=== PATIENT | female | born 1955 | race Caucasian/White ===

== ENCOUNTER → 2018-03-21 | Outpatient (CLI) | payer BC ==
--- NOTE | 2018-03-24 11:01 | MM ---
Reason for exam: screening (asymptomatic). Last mammogram was performed 2 years and 3 months ago. History: Patient is postmenopausal and had first child at age 33. Family history of premenopausal breast cancer in mother at age 50 and breast cancer in grandmother at age 72. Excisional biopsy of the right breast, 2003. Excisional biopsy of the right breast, 2002. Took hormonal contraceptives for 7 years. Physical Findings: A clinical breast exam by your physician is recommended on an annual basis and results should be correlated with mammographic findings. MG Screening Mammo w CAD Bilateral CC and MLO view(s) were taken. Prior study comparison: December 21, 2015, bilateral MG 3d screening mammo w/cad. November 19, 2014, bilateral MG diagnostic mammo w CAD UZAIR. There are scattered fibroglandular densities. Finding: There are typically benign dystrophic, grouped/clustered calcifications in the inner quadrant, posterior position of the left breast. There is a chronic nodularity in the posterior right breast. There is no discrete abnormality. ASSESSMENT: Benign, BI-RAD 2 RECOMMENDATION: Routine screening mammogram of both breasts in 1 year.
== END | disposition home or self-care (01) ==
LOC: RADMAMWWP 09:24
PROVIDERS: ATTEND Family Medicine
DX: Z12.31 Encounter for screening mammogram for malignant neoplasm of breast (principal)
CPT/HCPCS: 77067

== ENCOUNTER 2019-03-09 22:23 | Emergency (ER) | payer BC ==
[2019-03-09] MEDS ORDERED: SODIUM CHLORIDE 0.9% 500 ML 500 ML IV STA (22:53)
[2019-03-09 23:12] LABS: Basophils % (A) 0 %; Eosinophils # (A) 0.2 k/uL (0-0.7); Eosinophils % (A) 3 %; HCT 43.1 % (34.0-46.0); Lymphocytes % (A) 24 %; MCH 28.9 pg (25.0-35.0); MCHC 32.4 g/dL (31.0-37.0); MCV 89.1 fL (80.0-100.0); Mean Platelet Volume 6.9; Monocytes # (A) 0.4 k/uL (0-1.0); Monocytes % (A) 4 %; Neutrophils # (A) 5.5 k/uL (1.3-7.7); Neutrophils % (A) 67 %; Platelet Count 277 k/uL (150-450); RBC 4.84 m/uL (3.80-5.40); RDW 14.6 % (11.5-15.5); WBC 8.2 k/uL (3.8-10.6)
[2019-03-09] MEDS ORDERED: MAG HYDROX/AL HYDROX/SIMETH 30 ML, HYOSCYAMINE ELIXIR 10 ML, CIMETIDINE HCL 300 MG, LID... PO STA ×4 (23:12)
--- NOTE | 2019-03-09 23:15 | ED ---
General Adult HPI - General Chief complaint: Abdominal Pain Stated complaint: Upper Abd Pain Lower Chest Pain Time Seen by Provider: 03/09/19 22:53 Source: patient Mode of arrival: wheelchair Limitations: no limitations - History of Present Illness Initial comments: Dictation was produced using [employer] dictation software. please excuse any grammatical, word or spelling errors. Chief Complaint: 63-year-old female past medical history of hypertension, obesity presents with epigastric abdominal pain. History of Present Illness: His 63-year-old female presents with epigastric abdominal pain. She reports that the pain as sharp and radiates to both flanks. Patient recently started a new diet. She states she's on a 1-3 for diet. She states today she is on her loading phase. She reports that she had a lot of fatty substances. She reports that she had dinner when she was sitting on the ground reading her Bible when she began having this epigastric pain she initially thought it was gas. Took some gas pills. She tried also taking some Naprosyn with no resolve of her symptoms. Patient reports that she has had sore symptoms like this in the past however not typically this severe. Patient did report some nausea however no vomiting. Patient denies any chest pain or radiation of symptoms to her shoulders or arms. The ROS documented in this emergency department record has been reviewed and confirmed by me. Those systems with pertinent positive or negative responses have been documented in the HPI. All other systems are other negative and/or noncontributory. PHYSICAL EXAM: General Impression: Alert and oriented x3, not in acute distress HEENT: Normocephalic atraumatic, extra-ocular movements intact, pupils equal and reactive to light bilaterally, mucous membranes moist. Cardiovascular: Heart regular rate and rhythm, S1&S2 audible, no murmurs, rubs or gallops Chest: Lungs clear to auscultation bilaterally, no rhonchi, no wheeze, no rales Abdomen: Bowel sounds present, abdomen soft, non-tender to palpation, non- distended, no organomegaly, negative Dubois sign Musculoskeletal: Pulses present and equal in all extremities, no peripheral edema Motor: no focal deficits noted Neurological: CN II-XII grossly intact, no focal motor or sensory deficits noted Skin: Intact with no visualized rashes Psych: Normal affect and mood ED course: 63-year-old female presents chief complaint of epigastric abdominal pain. Vital signs upon arrival are within acceptable limits. Laboratory evaluation obtained. CBC, metabolic panel is unremarkable. Cardiac enzymes negative. Urinalysis shows 34 white blood cells. Patient denies any urinary symptoms at this time. Pending urine culture. KUB x-ray shows moderate amount of stool in the colon and rectum. Otherwise no acute processes at this time. She given GI cocktail no improvement of symptoms. Patient's abdomen was pressed again in vision still having mild persistent symptoms. Clinical presentation is consistent with burden pain. No clinical suspicion of surgical abdomen. Patient otherwise appears well 1 at rest. Abdomen is soft and no nrigid. Patient given IV analgesia. She is given prescription for Bentyl. Patient told that she should expect to pass large amounts of stool in the next 24 hours. Otherwise her symptoms are self limiting. Patient told to follow-up with PCP upon discharge. Return parameters discussed. Clinical presentation is not consistent with gallbladder pain given that patient not having any right upper quadrant symptoms and negative Dubois sign and also negative labs. EKG interpretation: Ventricular rate 84, normal sinus rhythm, AL interval 140, care 72, QTc 441. No AL prolongation, no QTC prolongation, no ST or T-wave changes noted. Overall, this EKG is unremarkable - Related Data Home Medications Medication Instructions Recorded Confirmed Aspirin 325 mg PO PC-SUPPER 03/09/19 03/09/19 Evening [place] Oil 500 mg PO PC-SUPPER 03/09/19 03/09/19 Hydrochlorothiazide 50 mg PO DAILY 03/09/19 03/09/19 Levothyroxine Sodium [Synthroid] 75 mcg PO DAILY 03/09/19 03/09/19 Losartan [Cozaar] 50 mg PO DAILY 03/09/19 03/09/19 Potassium 396 mg PO PC-SUPPER 03/09/19 03/09/19 Previous Rx's Medication Instructions Recorded Dicyclomine [Bentyl] 20 mg PO QID PRN #14 tablet 03/10/19 Allergies Allergy/AdvReac Type Severity Reaction Status Date / Time Sulfa (Sulfonamide Allergy Rash/Hives Verified 03/09/19 23:16 Antibiotics) codeine AdvReac Nausea & Verified 03/09/19 23:16 Vomiting Review of Systems ROS Statement: Those systems with pertinent positive or pertinent negative responses have been documented in the HPI. ROS Other: All systems not noted in ROS Statement are negative. Past Medical History Past Medical History: Hypertension History of Any Multi-Drug Resistant Organisms: None Reported Past Surgical History: Orthopedic Surgery Additional Past Surgical History / Comment(s): lt knee, breast lumps Past Psychological History: No Psychological Hx Reported Smoking Status: Never smoker Past Alcohol Use History: None Reported Past Drug Use History: Unable to Obtain General Exam Limitations: no limitations Course Vital Signs 03/09/19 22:40 Temperature 98.2 F Pulse Rate 88 Respiratory 20 Rate Blood Pressure 167/95 O2 Sat by Pulse 98 Oximetry Medical Decision Making - Lab Data Result diagrams: 03/09/19 23:00 03/09/19 23:00 Lab Results 03/09/19 03/09/19 03/09/19 Range/Units 23:00 23:00 23:00 WBC 8.2 (3.8-10.6) k/uL RBC 4.84 (3.80-5.40) m/uL Hgb 14.0 (11.4-16.0) gm/dL Hct 43.1 (34.0-46.0) % MCV 89.1 (80.0-100.0) fL MCH 28.9 (25.0-35.0) pg MCHC 32.4 (31.0-37.0) g/dL RDW 14.6 (11.5-15.5) % Plt Count 277 (150-450) k/uL Neutrophils % 67 % Lymphocytes % 24 % Monocytes % 4 % Eosinophils % 3 % Basophils % 0 % Neutrophils # 5.5 (1.3-7.7) k/uL Lymphocytes # 2.0 (1.0-4.8) k/uL Monocytes # 0.4 (0-1.0) k/uL Eosinophils # 0.2 (0-0.7) k/uL Basophils # 0.0 (0-0.2) k/uL Sodium 140 (137-145) mmol/L Potassium 3.9 (3.5-5.1) mmol/L Chloride 100 (98-107) mmol/L Carbon Dioxide 29 (22-30) mmol/L Anion Gap 11 mmol/L BUN 26 H (7-17) mg/dL Creatinine 0.64 (0.52-1.04) mg/dL Est GFR (CKD-EPI)AfAm >90 (>60 ml/min/1.73 sqM) Est GFR (CKD-EPI)NonAf >90 (>60 ml/min/1.73 sqM) Glucose 139 H (74-99) mg/dL Calcium 9.8 (8.4-10.2) mg/dL Total Bilirubin 0.3 (0.2-1.3) mg/dL AST 25 (14-36) U/L ALT 31 (9-52) U/L Alkaline Phosphatase 111 (38-126) U/L Troponin I <0.012 (0.000-0.034) ng/mL Total Protein 7.1 (6.3-8.2) g/dL Albumin 4.3 (3.5-5.0) g/dL Lipase 160 (23-300) U/L Urine Color Urine Appearance (Clear) Urine pH (5.0-8.0) Ur Specific [place] (1.001-1.035) Urine Protein (Negative) Urine Glucose (UA) (Negative) Urine Ketones (Negative) Urine Blood (Negative) Urine Nitrite (Negative) Urine Bilirubin (Negative) Urine Urobilinogen (<2.0) mg/dL Ur Leukocyte Esterase (Negative) Urine RBC (0-5) /hpf Urine WBC (0-5) /hpf Ur Squamous Epith Cells (0-4) /hpf Hyaline Casts (0-2) /lpf Urine Mucus (None) /hpf 03/09/19 Range/Units 23:00 WBC (3.8-10.6) k/uL RBC (3.80-5.40) m/uL Hgb (11.4-16.0) gm/dL Hct (34.0-46.0) % MCV (80.0-100.0) fL MCH (25.0-35.0) pg MCHC (31.0-37.0) g/dL RDW (11.5-15.5) % Plt Count (150-450) k/uL Neutrophils % % Lymphocytes % % Monocytes % % Eosinophils % % Basophils % % Neutrophils # (1.3-7.7) k/uL Lymphocytes # (1.0-4.8) k/uL Monocytes # (0-1.0) k/uL Eosinophils # (0-0.7) k/uL Basophils # (0-0.2) k/uL Sodium (137-145) mmol/L Potassium (3.5-5.1) mmol/L Chloride (98-107) mmol/L Carbon Dioxide (22-30) mmol/L Anion Gap mmol/L BUN (7-17) mg/dL Creatinine (0.52-1.04) mg/dL Est GFR (CKD-EPI)AfAm (>60 ml/min/1.73 sqM) Est GFR (CKD-EPI)NonAf (>60 ml/min/1.73 sqM) Glucose (74-99) mg/dL Calcium (8.4-10.2) mg/dL Total Bilirubin (0.2-1.3) mg/dL AST (14-36) U/L ALT (9-52) U/L Alkaline Phosphatase (38-126) U/L Troponin I (0.000-0.034) ng/mL Total Protein (6.3-8.2) g/dL Albumin (3.5-5.0) g/dL Lipase (23-300) U/L Urine Color Yellow Urine Appearance Clear (Clear) Urine pH 6.0 (5.0-8.0) Ur Specific [place] 1.044 H (1.001-1.035) Urine Protein 1+ H (Negative) Urine Glucose (UA) Negative (Negative) Urine Ketones Trace H (Negative) Urine Blood Negative (Negative) Urine Nitrite Negative (Negative) Urine Bilirubin Negative (Negative) Urine Urobilinogen 3.0 (<2.0) mg/dL Ur Leukocyte Esterase Small H (Negative) Urine RBC 13 H (0-5) /hpf Urine WBC 24 H (0-5) /hpf Ur Squamous Epith Cells 3 (0-4) /hpf Hyaline Casts 1 (0-2) /lpf Urine Mucus Many H (None) /hpf Disposition Clinical Impression: Abdominal pain Disposition: HOME SELF-CARE Condition: Good Instructions (If sedation given, give patient instructions): Abdominal Pain (ED) Prescriptions: Dicyclomine [Bentyl] 20 mg PO QID PRN #14 tablet PRN Reason: abdominal pain Is patient prescribed a controlled substance at d/c from ED?: No Referrals: Trina Austin DO [Primary Care Provider] - 1-2 days Time of Disposition: 00:14
[2019-03-09 23:16] LABS: Appearance,Urine Clear (Clear); Bilirubin,Urine Negative (Negative); Blood,Urine Negative (Negative); Color,Urine Yellow; Glucose,Urine (UA) Negative (Negative); Hyaline Casts,Urine 1 /lpf (0-2); Ketones,Urine Trace (Negative); Leukocyte Esterase,Urine Small (Negative); Mucus,Urine Many /hpf; Nitrite,Urine Negative (Negative); Protein,Urine 1+ (Negative); RBC,Urine 13 /hpf (0-5); Specific Gravity,Urine 1.044 (1.001-1.035); Squamous Epithelial Cell,Urine 3 /hpf (0-4)
[2019-03-09 23:22] LABS: ALT 31 U/L (9-52); AST 25 U/L (14-36); Albumin 4.3 g/dL (3.5-5.0); Alkaline Phosphatase 111 U/L (38-126); Anion Gap 11 mmol/L; Blood Urea Nitrogen 26 mg/dL (7-17); Calcium 9.8 mg/dL (8.4-10.2); Carbon Dioxide 29 mmol/L (22-30); Chloride 100 mmol/L (98-107); Glucose 139 mg/dL (74-99); Lipase 160 U/L (23-300); Potassium 3.9 mmol/L (3.5-5.1); Sodium 140 mmol/L (137-145); Total Bilirubin 0.3 mg/dL (0.2-1.3); Total Protein 7.1 g/dL (6.3-8.2)
--- NOTE | 2019-03-09 23:49 | XR ---
EXAM: XR Abdomen, 2 Views CLINICAL HISTORY: Pain TECHNIQUE: Frontal view of the abdomen/pelvis with upright view of the abdomen. COMPARISON: No relevant prior studies available. FINDINGS: Intraperitoneal space: No free air. Gastrointestinal tract: Moderate amount of stool throughout the colon and rectum. No dilation. Bones/joints: Unremarkable. IMPRESSION: Moderate amount of stool throughout the colon and rectum. No bowel obstruction, pneumatosis or free air.
[2019-03-10] MEDS ORDERED: KETOROLAC 30 MG/ML 1 ML VIAL IVP STA (00:11)
[2019-03-10 00:45] VITALS: BP 144/74; PULSE 78; RESP 18; TEMP 98
== END 2019-03-10 00:45 | disposition home or self-care (01) ==
LOC: EC 22:23
DX: R10.13 Epigastric pain (principal); R07.9 Chest pain, unspecified; Z79.82 Long term (current) use of aspirin; Z79.890 Hormone replacement therapy; Z79.899 Other long term (current) drug therapy; Z88.2 Allergy status to sulfonamides; Z88.5 Allergy status to narcotic agent; I10 Essential (primary) hypertension; Z53.29 Procedure and treatment not carried out because of patient's decision for other reasons
CPT/HCPCS: 36415; 74018; 80053; 81001; 83690; 84484; 85025; 87086; 93005; 96360; 99284

== ENCOUNTER → 2019-10-15 | Outpatient (CLI) | payer BC, MEDICARE ==
--- NOTE | 2019-10-16 13:42 | MM ---
Reason for exam: screening (asymptomatic). Last mammogram was performed 1 year and 7 months ago. History: Patient is postmenopausal and had first child at age 33. Family history of premenopausal breast cancer in mother at age 50 and breast cancer in grandmother at age 72. Excisional biopsy of the right breast, 2003. Excisional biopsy of the right breast, 2002. Took hormonal contraceptives for 7 years. Physical Findings: A clinical breast exam by your physician is recommended on an annual basis and results should be correlated with mammographic findings. MG Screening Mammo w CAD Bilateral CC and MLO view(s) were taken. Prior study comparison: March 21, 2018, bilateral MG screening mammo w CAD. December 21, 2015, bilateral MG 3d screening mammo w/cad. There are scattered fibroglandular densities. Benign appearing calcifications in the left breast. There is no discrete abnormality. No significant changes when compared with prior studies. ASSESSMENT: Benign, BI-RAD 2 RECOMMENDATION: Routine screening mammogram of both breasts in 1 year.
== END | disposition home or self-care (01) ==
LOC: RADMAMWWP 08:33
PROVIDERS: ATTEND Family Medicine
DX: Z12.31 Encounter for screening mammogram for malignant neoplasm of breast (principal); Z80.3 Family history of malignant neoplasm of breast
CPT/HCPCS: 77067

== ENCOUNTER → 2020-05-11 | Outpatient (CLI) | payer BC ==
--- NOTE | 2020-05-11 09:17 | MM ---
Reason for exam: clinical finding. Last mammogram was performed 7 months ago. History: Patient is postmenopausal and had first child at age 33. Family history of premenopausal breast cancer in mother at age 50 and breast cancer in grandmother at age 72. Excisional biopsy of the right breast, 2003. Excisional biopsy of the right breast, 2002. Took hormonal contraceptives for 7 years. Physical Findings: Nurse Summary: 2cm nodule in the right breast at 7 o'clock (nurse kyra). MG 3D Diag Mammo W/Cad RT CC, MLO, and XCCL view(s) were taken of the right breast. Prior study comparison: October 15, 2019, bilateral MG screening mammo w CAD. March 21, 2018, bilateral MG screening mammo w CAD. There are scattered fibroglandular densities. There is chronic nodularity in the right breast. Stable post operative changes. No significant new findings when compared with previous films. These results were verbally communicated with the patient and result sheet given to the patient on 05/11/20. ASSESSMENT: Incomplete: need additional imaging evaluation, BI-RAD 0 RECOMMENDATION: Ultrasound of the right breast. Manage patient on a clinical basis.
--- NOTE | 2020-05-11 09:18 | USB ---
Reason for exam: additional evaluation requested from abnormal screening. History: Patient is postmenopausal and had first child at age 33. Family history of premenopausal breast cancer in mother at age 50 and breast cancer in grandmother at age 72. Excisional biopsy of the right breast, 2003. Excisional biopsy of the right breast, 2002. Took hormonal contraceptives for 7 years. US Breast Limited RT Right limited breast ultrasound including focal area of concern, retroareolar and axilla demonstrates no cystic or solid lesion seen. These results were verbally communicated with the patient and result sheet given to the patient on 05/11/20. ASSESSMENT: Negative, BI-RAD 1 RECOMMENDATION: Return to routine screening mammogram schedule for both breasts. Manage patient on a clinical basis.
== END | disposition home or self-care (01) ==
LOC: RADMAMWWP 07:05
PROVIDERS: ATTEND Family Medicine
DX: N64.4 Mastodynia (principal); N63.10 Unspecified lump in the right breast, unspecified quadrant; R92.8 Other abnormal and inconclusive findings on diagnostic imaging of breast
CPT/HCPCS: 77061; 77065

== ENCOUNTER → 2022-04-25 | Outpatient (CLI) | payer BC ==
[2022-04-25 18:05] LABS: HCT 44.1 % (37.2-46.3); HGB 14.1 g/dL (12.0-15.0); MCH 28.5 pg (27.0-32.0); MCV 89.3 fL (80.0-97.0); Mean Platelet Volume 10.2 fL (9.5-12.2); NRBC Per 100 WBC 0 /100 WBCS (0.0-0.0); Platelet Count 218 X 10*3/uL (140-440); RBC 4.94 X 10*6/uL (4.10-5.20); RDW 14.3 % (11.5-14.5); WBC 5.02 X 10*3/uL (4.50-10.00)
[2022-04-25 18:11] LABS: ALT 18 U/L (8-44); AST 23 U/L (13-35); African American GFR (CKD) 89.9 (60.0-200.0); Albumin 4.4 g/dL (3.8-4.9); Albumin/Globulin Ratio 1.58 (1.60-3.17); Alkaline Phosphatase 88 U/L (41-126); BUN/Creat Ratio 19.77 Ratio (12.00-20.00); Blood Urea Nitrogen 15.6 mg/dL (9.0-27.0); Calcium 9.9 mg/dL (8.7-10.3); Carbon Dioxide 24.1 mmol/L (20.0-27.5); Chloride 104 mmol/L (96-109); Chol/HDL Ratio 3.58 Ratio; Globulin 2.8 g/dL (1.6-3.3); Glucose 100 mg/dL (70-110); LDL Cholesterol,Calculated 138.7 mg/dL (0.0-131.0); Non-African American GFR(CKD) 77.6 (60.0-200.0); Sodium 143 mmol/L (135-145); Total Protein 7.1 g/dL (6.2-8.2); VLDL Calculation 16.28 mg/dL (5.00-40.00)
== END | disposition home or self-care (01) ==
LOC: LABWHC1 11:44
PROVIDERS: ATTEND Family Medicine
DX: Z00.00 Encounter for general adult medical examination without abnormal findings (principal)
CPT/HCPCS: 36415; 80053; 80061; 84439; 84443; 85027

== ENCOUNTER → 2022-11-08 | Outpatient (CLI) | payer BC ==
[2022-11-08 15:01] LABS: HCT 40.9 % (37.2-46.3); HGB 13.2 g/dL (12.0-15.0); MCHC 32.3 g/dL (32.0-37.0); MCV 89.9 fL (80.0-97.0); Mean Platelet Volume 9.3 fL (9.5-12.2); NRBC Per 100 WBC 0 /100 WBCS (0.0-0.0); Platelet Count 232 X 10*3/uL (140-440); RBC 4.55 X 10*6/uL (4.10-5.20); RDW 14.3 % (11.5-14.5); WBC 12.06 X 10*3/uL (4.50-10.00)
[2022-11-08 19:39] LABS: ALT 18 U/L (8-44); AST 14 U/L (13-35); African American GFR (CKD) 87.8 (60.0-200.0); Albumin 4.1 g/dL (3.8-4.9); Albumin/Globulin Ratio 1.64 (1.60-3.17); Alkaline Phosphatase 84 U/L (41-126); BUN/Creat Ratio 29.63 Ratio (12.00-20.00); Blood Urea Nitrogen 23.7 mg/dL (9.0-27.0); Calcium 9.4 mg/dL (8.7-10.3); Carbon Dioxide 25.4 mmol/L (20.0-27.5); Chloride 99 mmol/L (96-109); Chol/HDL Ratio 3.06 Ratio; Globulin 2.5 g/dL (1.6-3.3); Glucose 87 mg/dL (70-110); LDL Cholesterol,Calculated 106.3 mg/dL (0.0-131.0); Non-African American GFR(CKD) 75.8 (60.0-200.0); Potassium 3.8 mmol/L (3.5-5.5); Sodium 140 mmol/L (135-145); Total Protein 6.6 g/dL (6.2-8.2)
== END | disposition home or self-care (01) ==
LOC: LABWHC1 08:40
PROVIDERS: ATTEND Physician Assistant
DX: I10 Essential (primary) hypertension (principal); E03.9 Hypothyroidism, unspecified; M85.60 Other cyst of bone, unspecified site
CPT/HCPCS: 36415; 80053; 80061; 83036; 84436; 84443; 85027

== ENCOUNTER → 2022-11-16 | Outpatient (CLI) | payer BC ==
--- NOTE | 2022-11-17 04:58 | MR ---
EXAMINATION TYPE: MR humerus RT w/wo con DATE OF EXAM: 11/16/2022 COMPARISON: HISTORY: Swelling/mass right upper arm, felt pop when exercising CONTRAST: Standard multiplanar, multisequence MRI departmental protocol images were obtained without contrast a nd with 9 mL intravenous Gadavist gadolinium contrast. The biceps tendon is intact. The glenoid [place] appear intact. Subscapularis tendon is intact. There i s significant fluid around the humeral head and at the greater tuberosity of the humerus consistent w ith large rotator cuff tear with retraction of the supraspinatus tendon. There is also likely partial tear of the infraspinatus tendon. The humerus appears intact with no evidence for fracture. No evide nce of a soft tissue mass. The muscles of the upper arm appear intact. IMPRESSION: There is evidence for large rotator cuff tear with retraction of the supraspinatus tendon. Shoulder j oint effusion. No fracture seen. No evidence of a mass of the upper arm.
== END | disposition home or self-care (01) ==
LOC: RADMRIMAIN 10:07
PROVIDERS: ATTEND Physician Assistant
DX: M75.111 Incomplete rotator cuff tear or rupture of right shoulder, not specified as traumatic (principal); M25.411 Effusion, right shoulder
CPT/HCPCS: 73220; A9585

== ENCOUNTER → 2022-11-21 | Outpatient (CLI) | payer BC ==
--- NOTE | 2022-11-21 13:14 | CA ---
Exercise Stress Test Report Name: Livia Cardoza Exam Date: 11/21/2022 09:16 Exam Location: [place] Stress Ht (in): 65 Wt (lb): 208 BSA: 2.01 Ordering Phys: Trina Austin DO Referring Phys: Mariela Valera PAC Technologist: Jey Godfrey Age: 67 Gender: F : 1955 Procedure CPT: Indications: R10 hypertention ICD-10 Codes: Patient History: DIFFICULTY IN BREATHING, HTN, FAMILY HX OF HEART DISEASE Medications: LEVOTHYROXINE, LOSARTAN, HZTZ Meds past 24 hrs: Pretest Chest Pain: STRESS TEST Haresh Protocol Exercise Duration (min:sec): 06:[address] Depressions (mm): Angina Score: Perez Score: Resting HR (bpm): 100 Peak HR (bpm): 171 Resting BP (mmHg): 141 / 91 Peak BP (mmHg): / 86 MPHR: 152 Target HR: 129 % MPHR: 113 METS: 7.1 Total Dose: Peak Dose: Atropine: Double Product: BP Response: Stress Termination: TARGET HR REACHED/MAX EXERTION Stress Symptoms: DIFFICULTY IN BREATHING Stress Summary: ECG ANALYSIS Resting ECG: Stress ECG: CONCLUSIONS Baseline EKG revealed a normal sinus rhythm rhythm with inferior nonspecific ST abnormality. Patient walked on a standard Haresh protocol for a total duration of 6 minutes 5 seconds and achieved a maximum heart rate of 170 bpm which is more than 85% of predicted maximal EKG tracings are suboptimal with a lot of baseline artifact upsloping nonspecific ST segment changes are noted. However into the however patient did not have any clear- cut angina she had mostly shortness of breath. By EKG criteria this is a negative stenosis with the limited exercise capacity. However quality of EKG was suboptimal with a lot of baseline artifact but I don't believe there is any significant ischemia. Dr. Mike Perez MD (Electronically Signed) Final Date: 21 November 2022 13:12
== END | disposition home or self-care (01) ==
LOC: RADNMMAIN 08:54
PROVIDERS: ATTEND Family Medicine
DX: I10 Essential (primary) hypertension (principal); R03.0 Elevated blood-pressure reading, without diagnosis of hypertension; R06.09 Other forms of dyspnea
CPT/HCPCS: 93017

== ENCOUNTER → 2022-12-04 | Outpatient (CLI) | payer BC ==
--- NOTE | 2022-12-05 09:49 | MM ---
Reason for Exam: Screening (asymptomatic). Last screening mammogram was performed 12 month(s) ago. Patient History: Menarche at age 13. First Full-Term at age 33. Late child-bearing (after 30). Postmenopausal. Patient has history of breast feeding. Patient used Hormonal Contraceptives for 7 years. 2003, Excisional Biopsy on the Right side. 2002, Excisional Biopsy on the Right side. Maternal grandmother had breast cancer, age 72. Mother had breast cancer, age 50. Risk Values: Twila 5 year model risk: 4.7%. NCI Lifetime model risk: 14.6%. Prior Study Comparison: 10/15/2019 Bilateral Screening Mammogram, [facility]. 05/11/2020 Right Diagnostic Mammogram, [facility]. 11/28/2021 Bilateral Screening Mammogram, [facility]. Tissue Density: There are scattered fibroglandular densities. Findings: Analyzed By CAD. There is no suspicious group of microcalcifications or new suspicious mass in either breast. Stable chronic nodularity within the right breast. Overall Assessment: Benign, BI-RAD 2 Management: Screening Mammogram of both breasts in 1 year. A clinical breast exam by your physician is recommended on an annual basis and results should be correlated with mammographic findings. Electronically signed and approved by: Dionisio Daniels D.O.
== END | disposition home or self-care (01) ==
LOC: RADMAMWWP 08:53
PROVIDERS: ATTEND Family Medicine
DX: Z12.31 Encounter for screening mammogram for malignant neoplasm of breast (principal); Z78.0 Asymptomatic menopausal state; Z80.3 Family history of malignant neoplasm of breast
CPT/HCPCS: 77067

== ENCOUNTER → 2023-12-05 | Outpatient (CLI) | payer MEDICARE ==
--- NOTE | 2023-12-05 08:44 | MM ---
Reason for Exam: Screening (asymptomatic). Last screening mammogram was performed 12 month(s) ago. Patient History: Menarche at age 13. First Full-Term at age 33. Late child-bearing (after 30). Postmenopausal. Patient has history of breast feeding. Patient used Hormonal Contraceptives for 7 years. 2003, Excisional Biopsy on the Right side. 2002, Excisional Biopsy on the Right side. Maternal grandmother had breast cancer, age 72. Mother had breast cancer, age 50. Risk Values: Twila 5 year model risk: 4.7%. NCI Lifetime model risk: 14.0%. Prior Study Comparison: 05/11/2020 Right Diagnostic Mammogram, [facility]. 11/28/2021 Bilateral Screening Mammogram, [facility]. 12/04/2022 Bilateral MG screening mammo w CAD, [facility]. Tissue Density: The breast tissue is almost entirely fat. Findings: Analyzed By CAD. There is no suspicious group of microcalcifications or new suspicious mass. Overall Assessment: Negative, BI-RAD 1 Management: Screening Mammogram of both breasts in [address] [facility] will attempt to contact patient to return for supplemental views and ultrasound if indicated. Patient should continue monthly self-breast exams. A clinical breast exam by your physician is recommended on an annual basis. This exam should not preclude additional follow-up of suspicious palpable abnormalities. Note on Twila scores and lifetime risk: 1. A Twila score greater than 3% is considered moderate risk. If this is the case, consider specialist referral to assess eligibility for a risk reducing agent. 2. If overall lifetime risk for the development of breast cancer is 20% or higher, the patient may qualify for future screening with alternating mammogram and breast MRI. Electronically signed and approved by: Garcia Chavez DO
== END | disposition home or self-care (01) ==
LOC: RADMAMWWP 07:57
PROVIDERS: ATTEND Family Medicine
DX: Z12.31 Encounter for screening mammogram for malignant neoplasm of breast (principal); Z80.3 Family history of malignant neoplasm of breast; Z78.0 Asymptomatic menopausal state
CPT/HCPCS: 77067

== ENCOUNTER 2024-02-12 08:12 | Day surgery (SDC) | payer MEDICARE ==
[~2024-02-12 08:12] MED LIST: LIDOCAINE 1% (10MG/ML) FOR IV START INTRADERMA PRN
[2024-02-12] MEDS: LACTATED RINGERS 1,000 ML IV SCH (08:27)
--- NOTE | 2024-02-12 08:27 | P.GSHP ---
History of Present Illness H&P Date: 02/12/24 CHIEF COMPLAINT: GERD and colon screen HISTORY OF PRESENT ILLNESS: The patient is a 68-year-old female who presents with gastroesophageal reflux disease and need for colon screen. Upper and lower endoscopy were offered for further evaluation and management. PAST MEDICAL HISTORY: Please see list. PAST SURGICAL HISTORY: Please see list. MEDICATIONS: Please see list. ALLERGIES: Please see list. SOCIAL HISTORY: No illicit drug use FAMILY HISTORY: No reports of Crohn disease or ulcerative colitis. REVIEW OF ORGAN SYSTEMS: CONSTITUTIONAL: No reports of fevers or chills. GI: Denies any blood in stools or constipation. PHYSICAL EXAM: VITAL SIGNS: Stable GENERAL: Well-developed pleasant in no acute distress. HEENT: No scleral icterus. Extraocular movements grossly intact. Moist buccal mucosa. NECK: Supple without lymphadenopathy. CHEST: Unlabored respirations. Equal bilateral excursions. CARDIOVASCULAR: Regular rate and rhythm. Distal 2+ pulses. ABDOMEN: Soft, nondistended. MUSCULOSKELETAL: No clubbing, cyanosis, or edema. ASSESSMENT: 1. Gastroesophageal reflux disease 2. Colon screen. PLAN: 1. Recommend proceeding with an upper and lower endoscopy Past Medical History Past Medical History: Blood Disorder, Hypertension, Osteoarthritis (OA), Skin Disorder, Thyroid Disorder Additional Past Medical History / Comment(s): positive Cologuard, Leiden Factor 5, rash in groin-gets weepy @times-sees derm. next week History of Any Multi-Drug Resistant Organisms: None Reported Past Surgical History: Breast Surgery, Orthopedic Surgery Additional Past Surgical History / Comment(s): lt knee arthroscopy, breast biopsies, colonoscopies Past Anesthesia/Blood Transfusion Reactions: No Reported Reaction, Family History of Problems w/ Anesthesia Additional Past Anesthesia/Blood Transfusion Reaction / Comment(s): aunt has difficulty waking Smoking Status: Never smoker - Past Family History Father Family Medical History: Deep Vein Thrombosis (DVT) Medications and Allergies Home Medications Medication Instructions Recorded Confirmed Type Aspirin 325 mg PO PC-SUPPER 03/09/19 02/11/24 History Levothyroxine Sodium [Synthroid] 75 mcg PO DAILY 03/09/19 02/11/24 History Losartan [Cozaar] 50 mg PO DAILY 03/09/19 02/11/24 History hydroCHLOROthiazide 50 mg PO DAILY 03/09/19 02/11/24 History Ascorbic Acid [Vitamin C] 1,000 mg PO DAILY 02/11/24 02/11/24 History Calcium Carbonate/Vitamin D3 1 tab PO DAILY 02/11/24 02/11/24 History [Calcium 500 mg Chewable Tablet] Cholecalciferol [Vitamin D3 (125 250 mcg PO DAILY 02/11/24 02/11/24 History Mcg = 5000 Iu)] Cranberry Fruit Extract [Cranberry] 500 mg PO DAILY 02/11/24 02/11/24 History Fish Oil/Dha/Epa [Fish Oil 1,200 1 each PO DAILY 02/11/24 02/11/24 History mg Fish Oil] Multivitamins, Thera [Multivitamin 1 tab PO DAILY 02/11/24 02/11/24 History (formulary)] Potassium Citrate 4 tab PO DAILY 02/11/24 02/11/24 History Psyllium Husk [Fiber Capsule] 0.4 gm PO DAILY 02/11/24 02/11/24 History Zinc Gluconate [Zinc] 50 mg PO DAILY 02/11/24 02/11/24 History lysine HCL [l-Lysine] 1,000 mg PO DAILY 02/11/24 02/11/24 History Allergies Allergy/AdvReac Type Severity Reaction Status Date / Time Sulfa (Sulfonamide Allergy Rash/Hives Verified 02/11/24 08:36 Antibiotics) amoxicillin [From Augmentin] AdvReac Nausea & Verified 02/11/24 08:37 Vomiting clavulanic acid AdvReac Nausea & Verified 02/11/24 08:37 [From Augmentin] Vomiting codeine AdvReac Nausea & Verified 02/11/24 08:36 Vomiting
[2024-02-12] MEDS ORDERED: PROPOFOL 10 MG/ML 20 ML VIAL IV ONE (09:07)
[2024-02-12] MEDS ORDERED: LIDOCAINE 1% INJ 10MG/ML (20 ML MDV) ONE (09:07)
[2024-02-12 09:16] VITALS: TEMP 98
--- NOTE | 2024-02-12 09:25 | P.PCN ---
Date of Procedure: 02/12/24 Description of Procedure: PREOPERATIVE DIAGNOSIS: Dysphagia Gastroesophageal reflux disease. Family history gastrointestinal cancer POSTOPERATIVE DIAGNOSIS: Gastroesophageal reflux disease. Gastritis. OPERATION: Esophagogastroduodenoscopy with biopsies along antrum and duodenum and esophagus SURGEON: Arleth Connor MD ANESTHESIA: MAC. INDICATIONS: The patient is a 68-year-old female who presents with reflux disease. Benefits and risks of the procedure were described. Informed consent was obtained. DESCRIPTION: The patient was brought into the endoscopy suite and laid in the left lateral decubitus position. An Olympus gastroscope was passed along the posterior oropharynx down to the distal esophagus where the squamocolumnar junction was encountered at 35 cm from the incisors. The stomach was entered and no bile reflux was found. Additional findings are listed below. Biopsies with cold forceps were obtained of the antrum. The first through third portion of the duodenum was examined. Retroflexion of the scope confirmed Hill grade 1 lower esophageal valve. The squamocolumnar junction demonstrated LA grade B erosive esophagitis. The stomach was desufflated. The patient tolerated the procedure well. FINDINGS: Squamocolumnar junction 35 cm from the incisors. Diaphragmatic hiatus at 35 cm. Hill grade 4 lower esophageal valve. LA grade B erosive esophagitis. Biopsies obtained Biopsies obtained of the duodenum. Chronic gastritis with biopsies obtained. RECOMMENDATIONS: Upper endoscopy as needed.
--- NOTE | 2024-02-12 09:52 | P.PCN ---
Date of Procedure: 02/12/24 Description of Procedure: PREOPERATIVE DIAGNOSIS: Abnormal stool test, positive Cologuard Family history gastrointestinal cancer Colonoscopy screening. POSTOPERATIVE DIAGNOSIS: Colonoscopy screening. Diverticulosis, scattered. OPERATION: Colonoscopy to the cecum, ileocecal valve and appendiceal orifice. SURGEON: Arleth Connor MD. ANESTHESIA: MAC. INDICATIONS: The patient is a 68-year-old female who presents with abnormal stool test, positive Cologuard. Benefits and risks were described and informed consent was obtained. DESCRIPTION OF PROCEDURE: The patient had undergone Sutab prep. The patient had been brought into the operating room and laid in the left lateral decubitus position. After adequate intravenous sedation, the rectum was examined with 2% lidocaine jelly. External hemorrhoids were encountered. The rectal tone was within normal limits. No lesions were palpated in the rectal vault. An Olympus colonoscope was advanced until the cecum, ileocecal valve and appendiceal orifice were clearly viewed. The prep was excellent. Scattered diverticulosis was encountered. No colonic polyps were found. No evidence of focal colitis was found. Retroflexion of the scope demonstrated grade 1 internal hemorrhoids without active bleeding or inflammation. The colon was desufflated. The patient had tolerated the procedure well. Withdrawal time was over 6 minutes. FINDINGS: Aronchick preparation quality scale 1 (1-5) Internal hemorrhoids, grade 2 External prolapsed hemorrhoids, grade 2 No arteriovenous malformations. No adenomatous polyps. Sigmoid diverticulosis and scattered diverticulosis No focal colitis. RECOMMENDATIONS: Lower endoscopy in 5 years, 2028 Plan - Discharge Summary Discharge Rx Participant: No New Discharge Prescriptions: Continue Aspirin 325 mg PO PC-SUPPER Levothyroxine Sodium [Synthroid] 75 mcg PO DAILY hydroCHLOROthiazide 50 mg PO DAILY Losartan [Cozaar] 50 mg PO DAILY Multivitamins, Thera [Multivitamin (formulary)] 1 tab PO DAILY Cholecalciferol [Vitamin D3 (125 Mcg = 5000 Iu)] 250 mcg PO DAILY Psyllium Husk [Fiber Capsule] 0.4 gm PO DAILY Potassium Citrate 4 tab PO DAILY Ascorbic Acid [Vitamin C] 1,000 mg PO DAILY Zinc Gluconate [Zinc] 50 mg PO DAILY lysine HCL [l-Lysine] 1,000 mg PO DAILY Fish Oil/Dha/Epa [Fish Oil 1,200 mg Fish Oil] 1 each PO DAILY Cranberry Fruit Extract [Cranberry] 500 mg PO DAILY Calcium Carbonate/Vitamin D3 [Calcium 500 mg Chewable Tablet] 1 tab PO DAILY Discharge Medication List Aspirin 325 mg PO PC-SUPPER 03/09/19 [History] Levothyroxine Sodium [Synthroid] 75 mcg PO DAILY 03/09/19 [History] Losartan [Cozaar] 50 mg PO DAILY 03/09/19 [History] hydroCHLOROthiazide 50 mg PO DAILY 03/09/19 [History] Ascorbic Acid [Vitamin C] 1,000 mg PO DAILY 02/11/24 [History] Calcium Carbonate/Vitamin D3 [Calcium 500 mg Chewable Tablet] 1 tab PO DAILY 02/11/24 [History] Cholecalciferol [Vitamin D3 (125 Mcg = 5000 Iu)] 250 mcg PO DAILY 02/11/24 [History] Cranberry Fruit Extract [Cranberry] 500 mg PO DAILY 02/11/24 [History] Fish Oil/Dha/Epa [Fish Oil 1,200 mg Fish Oil] 1 each PO DAILY 02/11/24 [History] Multivitamins, Thera [Multivitamin (formulary)] 1 tab PO DAILY 02/11/24 [History] Potassium Citrate 4 tab PO DAILY 02/11/24 [History] Psyllium Husk [Fiber Capsule] 0.4 gm PO DAILY 02/11/24 [History] Zinc Gluconate [Zinc] 50 mg PO DAILY 02/11/24 [History] lysine HCL [l-Lysine] 1,000 mg PO DAILY 02/11/24 [History] Follow up Appointment(s)/Referral(s): Arleth Connor MD [STAFF PHYSICIAN] - 03/10/24 11:15 am Patient Instructions/Handouts: GERD (Gastroesophageal Reflux Disease) (DC), Diverticulosis Diet (GEN) Activity/Diet/Wound Care/Special Instructions: Repeat colonoscopy 5 years, 2028 Discharge Disposition: HOME SELF-CARE
[2024-02-12 10:36] VITALS: BP 138/83; PULSE 60; RESP 16
== END 2024-02-12 10:25 | disposition home or self-care (01) ==
LOC: ORWHC2ENDO 08:12
PROVIDERS: ATTEND Surgery Plastic and Reconstructive Surgery
DX: Z12.11 Encounter for screening for malignant neoplasm of colon (principal); K31.9 Disease of stomach and duodenum, unspecified; D72.820 Lymphocytosis (symptomatic); K29.70 Gastritis, unspecified, without bleeding; K21.00 Gastro-esophageal reflux disease with esophagitis, without bleeding; I10 Essential (primary) hypertension; K21.9 Gastro-esophageal reflux disease without esophagitis; M19.90 Unspecified osteoarthritis, unspecified site; Z79.899 Other long term (current) drug therapy; Z80.0 Family history of malignant neoplasm of digestive organs; Z88.0 Allergy status to penicillin; Z88.1 Allergy status to other antibiotic agents; Z88.2 Allergy status to sulfonamides; Z88.5 Allergy status to narcotic agent; Z79.890 Hormone replacement therapy
CPT/HCPCS: 88305; 43239; J2001; J2704; G0121

== ENCOUNTER → 2025-05-31 | Outpatient (CLI) | payer MEDICARE ==
--- NOTE | 2025-05-31 14:51 | MM ---
Reason for Exam: Screening (asymptomatic). Last mammogram was performed 1 year(s) and 6 month(s) ago. Indicated Problems: Pain of the right side (Focal) for 3 Week(s). Patient History: Menarche at age 13. First Full-Term at age 33. Late child-bearing (after 29). Postmenopausal. Patient has history of breast feeding. Patient used Hormonal Contraceptives for 7 years. 2003, Excisional Biopsy on the Right side. 2002, Excisional Biopsy on the Right side. Maternal grandmother had breast cancer, age 72. Mother had breast cancer, age 50. Risk Values: Twila 5 year model risk: 4.8%. NCI Lifetime model risk: 12.8%. Prior Study Comparison: 11/28/2021 Bilateral Screening Mammogram, [facility]. 12/04/2022 Bilateral MG screening mammo w CAD, [facility]. 12/05/2023 Bilateral MG screening mammo w CAD, [facility]. Tissue Density: The breasts are almost entirely fatty. Findings: Analyzed By CAD. Right breast: There is no suspicious group of microcalcifications or new suspicious mass. Left breast: There is no suspicious group of microcalcifications or new suspicious mass. Overall Assessment: Negative, BI-RAD 1 Management: Screening Mammogram of both breasts in [address] [facility] will attempt to contact patient to return for supplemental views and ultrasound if indicated. Patient should continue monthly self-breast exams. A clinical breast exam by your physician is recommended on an annual basis. This exam should not preclude additional follow-up of suspicious palpable abnormalities. Note on Twila scores and lifetime risk: 1. A Twila score greater than 3% is considered moderate risk. If this is the case, consider specialist referral to assess eligibility for a risk reducing agent. 2. If overall lifetime risk for the development of breast cancer is 20% or higher, the patient may qualify for future screening with alternating mammogram and breast MRI. [facility], , 05/31/2025 1:18 PM. Electronically signed and approved by: Garcia Chavez DO
== END | disposition home or self-care (01) ==
LOC: RADMAMWWP 12:50
PROVIDERS: ATTEND Family Medicine
DX: Z12.31 Encounter for screening mammogram for malignant neoplasm of breast (principal); R92.313 Mammographic fatty tissue density, bilateral breasts; Z78.0 Asymptomatic menopausal state; Z92.0 Personal history of contraception; Z80.3 Family history of malignant neoplasm of breast
CPT/HCPCS: 77063; 77067